=== PATIENT | female | born 1940 | race Caucasian/White ===

== ENCOUNTER 2017-03-29 10:41 | Emergency (ER) | payer MEDICARE, OTHER ==
[~2017-03-29] VITALS: Ht 154.9 cm; Wt 49.5 kg
[~2017-03-29 10:41] MED LIST: ATOR20TA65 PO; LISI-567 PO; METO25TA99 PO; NITR0.4T SL
[2017-03-29 10:46] VITALS: BP 229/65; PULSE 54; RESP 15; O2SAT 100
[2017-03-29] MEDS ORDERED: ASPI-973 PO (11:24)
[2017-03-29] MEDS ORDERED: METO25TA99 PO (11:24)
[2017-03-29] MEDS ORDERED: GINK120T4 PO (11:24)
[2017-03-29] MEDS ORDERED: LACT1CAP73 PO (11:24)
[2017-03-29] MEDS ORDERED: CALC-1034 PO (11:24)
[2017-03-29] MEDS ORDERED: LOSA25TA21 PO (11:24)
[2017-03-29] MEDS ORDERED: MULT1CAP33 PO (11:24)
[2017-03-29] MEDS ORDERED: KRIL1CAP19 PO (11:24)
[2017-03-29] MEDS ORDERED: VITA400C64 PO (11:24)
[2017-03-29] MEDS ORDERED: GLUC-180 PO (11:24)
--- NOTE | 2017-03-29 11:40 | ED.REPORT ---
HPI-General Illness Date of Service Mar 29, 2017 ED Provider: Geoff Johnson MD Pt is a 76 year old female with a history of hyperlipidemia and HTN who presents to the ED via EMS complaining of weakness onset 1 month ago. She c/o associated memory loss, fatigue, difficult sleeping, stress (onset 3 days ago), cough with phlegm, sneezing, and rhinorrhea. She denies dysuria, recent falls or trauma, fever, leg swelling, and infection. Pt reports that she took aspirin and her blood pressure, but has not eaten today yet. The pt presented to urgent care for similar symptoms and was transferred to the ED for high blood pressure and ECG changes. Per EMS, the pt also had low blood sugar. She also reports left hip pain, stating that she had a surgery 3 years ago. Nursing Notes Stated Complaint: HYERTENSION Chief Complaint: General Complaint Nursing Notes Reviewed: Yes ([employer] reconciled) Allergies: Coded Allergies: Sulfa (Sulfonamide Antibiotics) (Verified Allergy, Severe, RASH, 03/29/17) atenolol (Verified Allergy, Severe, LEG PAIN, 03/29/17) diltiazem (Verified Allergy, Severe, ELEV. BP, 03/29/17) lisinopril (Verified Allergy, Unknown, cough, 03/29/17) Scheduled Aspirin (Aspirin) 81 Mg Tablet 81 MG PO DAILY Atorvastatin Calcium (Atorvastatin Calcium) 20 Mg Tablet 20 MG PO PM Calcium Carbonate/Vitamin D3 (Calcium 600 + Vit D3 400 Tab) 600 Mg-400 Tablet 1 EACH PO DAILY Ginkgo Biloba (Ginkgo Biloba) 120 Mg Tablet 120 MG PO DAILY Glucosamine/MSM/Chondroitin A (Glucosamine Chondroit MSM Tab) 1 Each Tablet 2 EACH PO DAILY Krill/Om-3/Dha/Epa/Phospho/Ast (Krill Oil 500 mg Softgel) 1 Each Capsule 1 EACH PO DAILY Lactobacillus Combo No.11 (Probiotic) 1 Each Cap.sprink 1 EACH PO DAILY Losartan Potassium (Losartan Potassium) 25 Mg Tablet 25 MG PO DAILY Metoprolol Succinate ER (Metoprolol Succinate ER) 25 Mg Tab.er.24h 25 MG PO DAILY Multivitamin (Multivitamins) 1 Each Capsule 1 EACH PO DAILY Vitamin E Mixed (Vitamin E) 400 Unit Capsule 400 UNIT PO DAILY General Time Seen by MD: 11:25 Chief Complaint Weakness Hx Obtained From: Patient, EMS Arrived By: Ambulance Sudden in Onset?: No Onset Occurred: More than a week ago... (1 month) Symptom Duration: Since onset Location: : Hip left Quality: Painful Severity: Current: Moderate Severity: Maximum: Moderate Recent Healthcare: Recent doctor visit Similar Sx Previous: No Past Medical History Past Medical History Reports: Hyperlipidemia, Hypertension, Transient ischemic attack Past Surgical History Parathyroidectomy hyperthyroidism Heart stent placement Cataracts bilaterally Left hip Reports: Hysterectomy Smoking History Never Smoker Social History Alcohol Use: Denies alcohol use Drug Use: Denies drug use Ambulatory Status Independent Review of Systems Denies trama, falls, and infection + memory loss Full Review of Systems Constitutional: Reports: Fatigue, Weakness - generalized, Denies: Fever Respiratory: Reports: Prod cough, clear Female: Denies: Dysuria Allergy / Immune: Reports: Rhinorrhea, Sneezing Psychiatric: Reports: Insomnia, Stress Complete sys rev & neg: except as marked. Physical Exam Vital Signs Vital Signs Date Time Temp Pulse Resp B/P Pulse Ox O2 Delivery O2 Flow Rate FiO2 03/29/17 12:30 51 17 177/66 100 Room Air 03/29/17 10:46 37.0 54 15 229/65 100 Room Air Initial VS: Reviewed, Vital signs abnormal (HTN) Head / Eyes: Atraumatic, Normocephalic Neck: Supple, Full range of motion Respiratory: Breath sounds normal, Clear to auscultation, No respiratory distress Abdomen / GI: Soft, Non-tender Extremities: Vascular intact, Neuro intact Skin: Warm, Dry, No cyanosis Neurologic: Alert, Oriented, Nonfocal Psychiatric: Mood/affect normal, Behavior normal General/Constitutional: Awake, Alert, Cooperative Cardiovascular: Heart rate NL, Regular rhythm Heart Sounds / Murmur: Positive: Murmur present... (II/) Interpretation & Diagnostics Lab Results Interpretation Result Diagram: 03/29/17 1142 03/29/17 1142 Test 03/29/17 11:42 03/29/17 13:35 White Blood Count 4.5th/mm3 (3.8-10.1) Red Blood Count 4.41mil/mm3 (3.90-5.20) Hemoglobin 13.1g/dL (12.0-15.6) Hematocrit 39.2% (35.0-46.0) Mean Corpuscular Volume 88.9fL (81-100) Mean Corpuscular Hemoglobin 29.7pg (27.0-35.0) Mean Corpuscular Hemoglobin Concent 33.4% (32.0-37.0) Red Cell Distribution Width 13.2% (12.3-15.4) Platelet Count 177bil/L (150-400) Neutrophils (%) (Auto) 62.0% (40-74) Lymphocytes (%) (Auto) 27.9% (14-46) Monocytes (%) (Auto) 7.7% (4-12) Eosinophils (%) (Auto) 1.3% (0-5) Basophils (%) (Auto) 1.1% (0-3) Sodium Level 140mEq/L (134-144) Potassium Level 3.6mEq/L (3.5-5.2) Chloride Level 101mEq/L (97-108) Carbon Dioxide Level 26mmol/L (18-29) Blood Urea Nitrogen 13mg/dL (8-27) Creatinine 0.54mg/dL (0.57-1.00) Estimat Glomerular Filtration Rate 157mL/min (>59) Glucose Level 160mg/dL (60-99) Calcium Level 8.9mg/dL (8.5-10.1) Total Bilirubin 0.3mg/dL (0.0-1.2) Aspartate Amino Transf (AST/SGOT) 25U/L (0-50) Alanine Aminotransferase (ALT/SGPT) 20U/L (0-32) Alkaline Phosphatase 89U/L (25-165) Troponin T 0.010ug/L (0.0-0.011) Total Protein 7.0g/dL (6.4-8.4) Albumin 4.1g/dL (3.4-5.0) Hold Cohen Top Tube Received (Received) Urine Color Straw (YELLOW) Urine Appearance Hazy (CLEAR,HAZY) Urine pH 7.0 (5.0-8.0) Urine Specific [place] 1.010 (1.003-1.035) Urine Protein Negativemg/dL (NEG,TRACE) Urine Glucose (UA) Negativemg/dL (NEGATIVE) Urine Ketones Negativemg/dL (NEGATIVE) Urine Occult Blood Negative (NEGATIVE) Urine Nitrite Negative (NEGATIVE) Urine Bilirubin Negative (NEGATIVE) Urine Urobilinogen Normalmg/dL (NORMAL) Urine Leukocyte Esterase Negative (NEGATIVE) Urine RBC 0-2/hpf (0-2) Urine WBC 0-5/hpf (0-5) Urine Epithelial Cells Occasional/hpf (NONE-MOD) Urine Crystals None seen (NONE SEEN) Urine Bacteria None/hpf (NONE-FEW) Urine Hyaline Casts None/lpf (NONE) Urine Granular Casts None seen (NONE SEEN) Urine Waxy Casts None seen (NONE SEEN) Urine Red Blood Cell Casts None seen (NONE SEEN) Urine White Blood Cell Casts None seen (NONE SEEN) Urine Mucus None seen (None Seen) Urine Trichomonas None seen (NONE SEEN) Urine Yeast None (NONE SEEN) Urinalysis Comment None Urine Culture Reflexed Not indicated Lab Results Interpretation: CBC normal CMP normal urine negative Troponin negative ECG Interpretation ECG Interpretation: Left ventricular hypertrophy with repolarization, slightly more pronounced than the EKG in 2013 Time: 10:24 Interpreted by: ED physician X-Ray Chest Interpretation Chest Xray Interpretation: Negative. View: Portable, 1 view Interpretation / Wet Read by: Wet read ED physician Re-Eval/Medical Decision Med Decision/Clinical Course This is a 76-year-old female who just is felt unusually tired for the past few days. She thinks it might all be exertion and stress that she reports she been very busy. But she decided she be checked out and went to urgent care. She has no specific complaints, she denies a sense of fever, chills, cough, chest pain, shortness of breath, abdominal pain, dysuria-but at urgent care was noted to have a blood pressure of 230 systolic, so sent to the ED. She reports she has labile hypertension, reports sometimes is high, sometimes as normal-and she states she has been compliant with her losartan and metoprolol. Her blood pressure is improved, but still elevated on arrival. The patient clinically appears well, and is in no visible distress and has no findings of heart failure evident on exam. Her EKG reveals LVH, but no marked interval change. Blood work is normal normal creatinine. Chest x-ray reveals no acute disease. Urinalysis is negative. Patient received a dose of losartan in the department. She is on metoprolol at rates in the 50s so she does not have additional room for additional beta-blockade. The patient's insisted that her blood pressure does vary and is often high at the office, but often normal at home. She is no longer having such extraordinarily high blood pressures as she did at urgent care, I doubt malignant hypertension as a cause of her presentation-patient agrees. Pressures been down in the 160s at times her. So I think the patient can be safely discharged, but the importance of measuring and recording her blood pressure home was reviewed. Patient's comfortable doing this. I have instructed to go ahead and take her scheduled losartan this evening as well. Patient is discharged in good condition. Routine and return precautions reviewed. Source of Hx: Old records Time of Eval: 14:44 Re-Evaluation/Progress Note: Pt rechecked. Informed pt of plan for discharge. Pt understands and agrees with plan for discharge. F/U instructions and RTER warnings given. All questions addressed. Differential Diagnosis: Negative: Abdominal pain, Acute coronary syndrome, Bronchitis, acute, COPD exacerbation, G-tube repair/replacement, Influenza, Neutropenia, Pneumonia, Urinary tract infection, Wound dehiscence Counseled Regarding: Diagnosis, Lab results, Need for follow-up, When/why to return to ED Discharge & Departure Primary Impression: High blood pressure Disposition: Home Discharge Condition All VS Reviewed: Yes Condition: Stable Additional Instructions: 1. A dangerous cause of her generalized fatigue was not identified, it may indeed simply be from the marked distress and activities of the past several days. 2. Your blood pressure was extremely elevated at urgent care, but decreased here in the department-although it still elevated, is not clear that it is related to your symptoms. 3. Your blood tests and tests in the emergency department were normal. 4. If indicated her blood pressures are somewhat labile, please continue to monitor home. Make sure you take your regular medicines-and this includes going ahead and taking her evening dose of losartan tonight even though he received a dose of losartan in the emergency department. 5. Call for recheck with your provider next week. 6. Return to the emergency department if he developed new or worsening symptoms. Referrals: Myra Tapia (PCP) Kell Attestation Portions of this note were transcribed by Celia Beaulieu. I, Dr. Johnson personally performed the history, physical exam and medical decision-making; I reviewed and confirmed the accuracy of the information in the transcribed note. Signed by: Kell Israel, 7/7/17 and 12:50. copies to: Myra Tapia Matthew F MD Mar 29, 2017 11:40 Celia Summers Mar 29, 2017 11:48
[2017-03-29 11:45] LABS: BASOPHILS % (AUTO) 1.1 % (0-3); EOSINOPHILS % (AUTO) 1.3 % (0-5); MONOCYTES % (AUTO) 7.7 % (4-12); Mean Corpuscular Hemoglobin 29.7 pg (27.0-35.0); Mean Corpuscular Volume 88.9 fL (81-100); Platelet Count 177 bil/L (150-400)
[2017-03-29 12:06] LABS: TROPONIN T 0.01 ug/L (0.0-0.011)
[2017-03-29 12:30] VITALS: BP 177/66; PULSE 51; RESP 17; O2SAT 100
[2017-03-29 14:03] LABS: APPEARANCE,URINE HAZY (CLEAR,HAZY); COLOR,URINE STRAW (YELLOW)
[2017-03-29 14:04] LABS: OCCULT BLOOD,URINE NEGATIVE (NEGATIVE); UROBILINOGEN,URINE NORMAL (NORMAL)
[2017-03-29 15:10] VITALS: BP 189/75; PULSE 56; RESP 16; O2SAT 100
--- NOTE | 2017-03-29 16:58 | DRSVH ---
PROCEDURE: X-RAY CHEST ONE VIEW, PORTABLE ([id number]) INDICATIONS: Congestive heart failure TECHNIQUE: One view of the chest was acquired. COMPARISON: [facility], , CHEST 1VW (PORTABLE), 07/27/2014, 22:32. FINDINGS: Surgical changes and devices: None. Lungs and pleura: No pleural effusions or pneumothorax. Lungs are clear, and interstitium is promin ent Mediastinum: Mediastinal contours appear normal. Heart size is enlarged. Bones and chest wall: No suspicious bony lesions. Overlying soft tissues appear unremarkable. IMPRESSION: Background cardiomegaly and interstitial prominence similar to prior chest radiograph precious ed 07/27/2014. Mild developing CHF cannot be excluded. Correlate clinically. Dictated by: Bjorn Jerez [facility] Interpreted: Yuri Fraah MD on 03/29/2017 at 12:42 Approved by: Yuri Farah M.D. on 03/29/2017 at 16:56
== END 2017-03-29 15:13 | disposition home or self-care (01) ==
LOC: SED 10:41
DX: I10 Essential (primary) hypertension (principal); E78.5 Hyperlipidemia, unspecified; Z86.73 Personal history of transient ischemic attack (TIA), and cerebral infarction without residual deficits; Z90.710 Acquired absence of both cervix and uterus; Z79.82 Long term (current) use of aspirin; Z79.899 Other long term (current) drug therapy; Z88.2 Allergy status to sulfonamides; Z88.8 Allergy status to other drugs, medicaments and biological substances